=== PATIENT | female | born 1975 | race Caucasian/White ===

== ENCOUNTER 2017-03-08 09:34 | Emergency (ER) | payer OTHER ==
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
[2017-03-08] MEDS ORDERED: KETOROLAC TROMETHAMINE 30 MG/1 ML VIAL IVPUSH ONE (10:22)
[2017-03-08] MEDS ORDERED: METOCLOPRAMIDE HCL INJECTION 10 MG/2 ML VIAL IVPUSH ONE (10:22)
[2017-03-08] MEDS ORDERED: SODIUM CHLORIDE 1,000 ML IV STA (10:22)
[2017-03-08 10:25] VITALS: TEMP 98.3; BMI 25.8
[2017-03-08 14:02] VITALS: BP 96/54; PULSE 54
== END 2017-03-08 14:02 | disposition home or self-care (01) ==
LOC: JER 09:34
PROC: 3E0333Z Introduction of Anti-inflammatory into Peripheral Vein, Percutaneous Approach (ICD-10-PCS; principal; 2017-03-08)
PROC: 3E033GC Introduction of Other Therapeutic Substance into Peripheral Vein, Percutaneous Approach (ICD-10-PCS; 2017-03-08)
DX: G44.319 Acute post-traumatic headache, not intractable (principal); V43.62XA Car passenger injured in collision with other type car in traffic accident, initial encounter; Y92.412 Parkway as the place of occurrence of the external cause; Y93.89 Activity, other specified; Y99.8 Other external cause status
CPT/HCPCS: 70450-TC; 84703; 99283-25